=== PATIENT | male | born 1985 | race Two or more races ===

== ENCOUNTER 2024-05-20 23:18 | Inpatient (IN) | payer MEDICAID ==
[~2024-05-20] VITALS: Ht 172.7 cm; Wt 88.7 kg
[2024-05-20 23:35] VITALS: BP 127/83; PULSE 116; RESP 23; TEMP 102.4; O2SAT 100
[2024-05-21] VITALS (7 sets, daily range): BP systolic 103; BP diastolic 64; PULSE 72–117; RESP 18–22; TEMP 97.5; O2SAT 94–99
[2024-05-21 00:15] LABS: BILIRUBIN,URINE NEGATIVE (NEGATIVE); BLOOD, URINE TRACE-I (NEGATIVE); COLOR,URINE YELLOW (YELLOW); LEUKOCYTE ESTERASE ,URINE NEGATIVE (NEGATIVE); NITRITE, URINE NEGATIVE (NEGATIVE); PROTEIN,URINE 2+ (NEGATIVE); UGLUCOSE NEGATIVE (NEGATIVE); UROBILINOGEN,URINE 0.2 EU/dL (0.2 - 1)
[2024-05-21 00:17] LABS: APPEARANCE,URINE SLIGHTLY HAZY (CLEAR)
[2024-05-21 00:21] LABS: BACTERIA,URINE 2+ /HPF (None Seen); MUCUS,URINE None Seen /LPF (None Seen); RBC,URINE 0-5 /HPF (0-5); SQUAMOUS EPITHELIAL CELL,UR 0-3 (FEW) /LPF (0-3 (FEW))
[2024-05-21 00:22] LABS: ANION GAP 7.6 (8-16); CALCIUM 9.2 mg/dL (8.5-10.1); CARBON DIOXIDE 33.9 mmol/L (21-32); POTASSIUM 4.5 mmol/L (3.5-5.1)
[2024-05-21 00:27] LABS: BASOPHILS # (AUTO) 0.1 K/uL (0.00-0.22); EOSINOPHILS # (AUTO) 0.1 K/uL (0-0.4); EOSINOPHILS % (AUTO) 1.4 % (0.0-4.0); HEMATOCRIT 31.3 % (36-52); LYMPHOCYTES # (AUTO) 0.8 K/uL (2.0-11.5); LYMPHOCYTES % (AUTO) 7.4 % (20.5-51.1); MEAN CORPUSCULAR HEMOGLOBIN 27 pg (27-31); MEAN CORPUSCULAR HGB CONC 32 g/dL (33-37); MEAN CORPUSCULAR VOLUME 84.1 fL (80-94); MONOCYTES # (AUTO) 0.5 K/uL (0.8-1.0); MONOCYTES % (AUTO) 4.7 % (1.7-9.3); NEUTROPHILS # (AUTO) 8.9 K/uL (1.8-7.7); NEUTROPHILS % (AUTO) 85.5 % (42.2-75.2); PLATELET COUNT (AUTO) 370 K/uL (140-450); RED BLOOD CELL COUNT(AUTO) 3.71 MIL/uL (4.20-6.10); RED CELL DISTRIBUTION WIDTH 20.2 % (11.6-13.7); WHITE BLOOD COUNT (AUTO) 10.4 K/uL (4.8-10.8)
[2024-05-21 00:31] LABS: LACTIC ACID 1.1 mmol/L (0.4-2.0)
[2024-05-21] MEDS ORDERED: cefTRIAXone 1,000 MG VIAL ONE (00:36)
[2024-05-21 00:37] LABS: FLU A ANTIGEN negative (NEGATIVE); FLU B ANTIGEN NEGATIVE (NEGATIVE)
[2024-05-21] MEDS ORDERED: KETOROLAC 30 MG/ML VIAL ONE (00:37)
[2024-05-21] MEDS: KETOROLAC 30 MG/ML VIAL IVP ONE (00:42)
[2024-05-21] MEDS: cefTRIAXone 1,000 MG in DEXT 5% MINI-BAG PLUS 50 ML IV ONE (00:43)
[2024-05-21] MEDS ORDERED: QUET25TA46 PO (01:08)
[2024-05-21] MEDS ORDERED: [UNRECOGNIZED DRUG - CODE] TD (01:08)
[2024-05-21] MEDS ORDERED: GABA100C PO (01:08)
[2024-05-21] MEDS ORDERED: BEN10 PO (01:08)
[2024-05-21] MEDS ORDERED: LID5T TP (01:08)
[2024-05-21] MEDS ORDERED: METH-1867 PO (01:08)
[2024-05-21] MEDS ORDERED: ONDANSETRON 4 MG/2 ML VIAL IVP PRN (03:55)
[2024-05-21] MEDS ORDERED: POTASSIUM CHLORIDE 10 MEQ TABER PO PRN (03:55)
[2024-05-21] MEDS ORDERED: KCL 20 MEQ IN 100 mL PREMIX 200 ML IV PRN (03:55)
[2024-05-21] MEDS ORDERED: PIPERACILLIN/TAZOBACTAM 3.375 GM VIAL IV ONE (06:13)
[2024-05-21] MEDS: NACL 0.9% 1,000 ML IV SCH (06:19)
[2024-05-21] MEDS: PIPERACILLIN/TAZOBACTAM 3.375 GM in DEXTROSE 5% 50 ML IV SCH (06:20)
[2024-05-21] MEDS: ALBUTEROL SULFATE/IPRATROPIU 3 ML SOL IH SCH (07:18)
[2024-05-21] MEDS: DEXT 5% / NACL 0.45% 1,000 ML IV SCH (13:37)
[2024-05-21] MEDS: MORPHINE SULFATE 4 MG/ML SYR IVP PRN (20:58)
[2024-05-22] VITALS (12 sets, daily range): BP systolic 90–108; BP diastolic 47–68; PULSE 60–94; RESP 16–20; TEMP 96.6–97.6; O2SAT 72–99
[2024-05-22 07:22] LABS: BASOPHILS # (AUTO) 0.1 K/uL (0.00-0.22); EOSINOPHILS # (AUTO) 0.3 K/uL (0-0.4); EOSINOPHILS % (AUTO) 4.2 % (0.0-4.0); HEMOGLOBIN 8.2 g/dL (12.0-18.0); LYMPHOCYTES # (AUTO) 1.1 K/uL (2.0-11.5); LYMPHOCYTES % (AUTO) 18.1 % (20.5-51.1); MEAN CORPUSCULAR HEMOGLOBIN 27 pg (27-31); MEAN CORPUSCULAR HGB CONC 33 g/dL (33-37); MEAN CORPUSCULAR VOLUME 83.4 fL (80-94); MONOCYTES # (AUTO) 0.4 K/uL (0.8-1.0); NEUTROPHILS # (AUTO) 4.3 K/uL (1.8-7.7); NEUTROPHILS % (AUTO) 70.7 % (42.2-75.2); PLATELET COUNT (AUTO) 291 K/uL (140-450); RED CELL DISTRIBUTION WIDTH 19.7 % (11.6-13.7); WHITE BLOOD COUNT (AUTO) 6.1 K/uL (4.8-10.8)
[2024-05-22 07:42] LABS: ALBUMIN 1.9 g/dL (3.4-5.0); ANION GAP 7.9 (8-16); CALCIUM 8.5 mg/dL (8.5-10.1); CREATININE 0.6 mg/dL (0.6-1.3); POTASSIUM 3.9 mmol/L (3.5-5.1); TOTAL BILIRUBIN 0.2 mg/dL (0.0-1.0); TOTAL PROTEIN, SERUM 6.4 g/dL (6.4-8.2)
[2024-05-23] VITALS (10 sets, daily range): BP systolic 99–122; BP diastolic 61–80; PULSE 58–99; RESP 16–20; TEMP 96.8–98.2; O2SAT 91–100
[2024-05-23 06:02] LABS: ALBUMIN 1.9 g/dL (3.4-5.0); CALCIUM 8.5 mg/dL (8.5-10.1); CARBON DIOXIDE 34.6 mmol/L (21-32); CREATININE 0.6 mg/dL (0.6-1.3); POTASSIUM 3.6 mmol/L (3.5-5.1); TOTAL BILIRUBIN 0.3 mg/dL (0.0-1.0); TOTAL PROTEIN, SERUM 6.7 g/dL (6.4-8.2)
[2024-05-23 06:12] LABS: BASOPHILS # (AUTO) 0.1 K/uL (0.00-0.22); BASOPHILS % (AUTO) 0.6 % (0.0-2.0); EOSINOPHILS # (AUTO) 0.4 K/uL (0-0.4); EOSINOPHILS % (AUTO) 3.7 % (0.0-4.0); HEMATOCRIT 27.9 % (36-52); LYMPHOCYTES # (AUTO) 1.9 K/uL (2.0-11.5); LYMPHOCYTES % (AUTO) 17.6 % (20.5-51.1); MEAN CORPUSCULAR HEMOGLOBIN 28 pg (27-31); MEAN CORPUSCULAR HGB CONC 33 g/dL (33-37); MEAN CORPUSCULAR VOLUME 84.9 fL (80-94); MONOCYTES # (AUTO) 0.7 K/uL (0.8-1.0); MONOCYTES % (AUTO) 6.3 % (1.7-9.3); NEUTROPHILS # (AUTO) 7.7 K/uL (1.8-7.7); NEUTROPHILS % (AUTO) 71.8 % (42.2-75.2); PLATELET COUNT (AUTO) 336 K/uL (140-450); RED BLOOD CELL COUNT(AUTO) 3.28 MIL/uL (4.20-6.10); RED CELL DISTRIBUTION WIDTH 19.9 % (11.6-13.7); WHITE BLOOD COUNT (AUTO) 10.7 K/uL (4.8-10.8)
[2024-05-24] VITALS (8 sets, daily range): BP systolic 111–123; BP diastolic 67–71; PULSE 68–86; RESP 17–20; TEMP 97.8–97.9; O2SAT 88–98
[2024-05-24 06:15] LABS: BASOPHILS # (AUTO) 0.1 K/uL (0.00-0.22); BASOPHILS % (AUTO) 1.2 % (0.0-2.0); EOSINOPHILS # (AUTO) 0.2 K/uL (0-0.4); EOSINOPHILS % (AUTO) 2.6 % (0.0-4.0); HEMATOCRIT 31.5 % (36-52); HEMOGLOBIN 10.1 g/dL (12.0-18.0); LYMPHOCYTES # (AUTO) 1.1 K/uL (2.0-11.5); LYMPHOCYTES % (AUTO) 16.7 % (20.5-51.1); MEAN CORPUSCULAR HEMOGLOBIN 26 pg (27-31); MEAN CORPUSCULAR HGB CONC 32 g/dL (33-37); MEAN CORPUSCULAR VOLUME 82.2 fL (80-94); MONOCYTES # (AUTO) 0.5 K/uL (0.8-1.0); MONOCYTES % (AUTO) 6.8 % (1.7-9.3); NEUTROPHILS # (AUTO) 4.9 K/uL (1.8-7.7); NEUTROPHILS % (AUTO) 72.7 % (42.2-75.2); PLATELET COUNT (AUTO) 360 K/uL (140-450); RED BLOOD CELL COUNT(AUTO) 3.84 MIL/uL (4.20-6.10); RED CELL DISTRIBUTION WIDTH 19.5 % (11.6-13.7); WHITE BLOOD COUNT (AUTO) 6.7 K/uL (4.8-10.8)
[2024-05-24 06:19] LABS: TOTAL PROTEIN, SERUM 7.4 g/dL (6.4-8.2)
[2024-05-24 06:54] LABS: ALBUMIN 2.1 g/dL (3.4-5.0); ANION GAP 14.5 (8-16); CALCIUM 9.1 mg/dL (8.5-10.1); CARBON DIOXIDE 29.2 mmol/L (21-32); POTASSIUM 3.7 mmol/L (3.5-5.1); TOTAL BILIRUBIN 0.4 mg/dL (0.0-1.0)
[2024-05-24 10:39] LABS: CREATININE 0.5 mg/dL (0.6-1.3)
[2024-05-25] VITALS (8 sets, daily range): BP systolic 90–124; BP diastolic 54–70; PULSE 58–82; RESP 18–20; TEMP 97.5–98; O2SAT 71–100
[2024-05-25 05:31] LABS: BASOPHILS # (AUTO) 0.1 K/uL (0.00-0.22); BASOPHILS % (AUTO) 1.1 % (0.0-2.0); EOSINOPHILS # (AUTO) 0.2 K/uL (0-0.4); EOSINOPHILS % (AUTO) 2.8 % (0.0-4.0); HEMATOCRIT 27.7 % (36-52); HEMOGLOBIN 9.1 g/dL (12.0-18.0); LYMPHOCYTES # (AUTO) 1.2 K/uL (2.0-11.5); LYMPHOCYTES % (AUTO) 19.1 % (20.5-51.1); MEAN CORPUSCULAR HEMOGLOBIN 27 pg (27-31); MEAN CORPUSCULAR HGB CONC 33 g/dL (33-37); MEAN CORPUSCULAR VOLUME 81.7 fL (80-94); MONOCYTES # (AUTO) 0.4 K/uL (0.8-1.0); MONOCYTES % (AUTO) 6.2 % (1.7-9.3); NEUTROPHILS # (AUTO) 4.3 K/uL (1.8-7.7); NEUTROPHILS % (AUTO) 70.8 % (42.2-75.2); PLATELET COUNT (AUTO) 343 K/uL (140-450); RED BLOOD CELL COUNT(AUTO) 3.39 MIL/uL (4.20-6.10); RED CELL DISTRIBUTION WIDTH 19.3 % (11.6-13.7); WHITE BLOOD COUNT (AUTO) 6.1 K/uL (4.8-10.8)
[2024-05-25 05:53] LABS: ALBUMIN 1.9 g/dL (3.4-5.0); ANION GAP 5.7 (8-16); CALCIUM 8.7 mg/dL (8.5-10.1); CARBON DIOXIDE 34.3 mmol/L (21-32); CREATININE 0.6 mg/dL (0.6-1.3); TOTAL BILIRUBIN 0.5 mg/dL (0.0-1.0); TOTAL PROTEIN, SERUM 6.5 g/dL (6.4-8.2)
[2024-05-25] MEDS: POTASSIUM CHLORIDE 10 MEQ TABER PO SCH (14:00)
[2024-05-26] VITALS (9 sets, daily range): BP systolic 91–97; BP diastolic 49–58; PULSE 67–99; RESP 16–24; TEMP 97.1–98; O2SAT 71–98
[2024-05-26 05:30] LABS: BASOPHILS # (AUTO) 0.1 K/uL (0.00-0.22); EOSINOPHILS # (AUTO) 0.2 K/uL (0-0.4); EOSINOPHILS % (AUTO) 3.5 % (0.0-4.0); HEMATOCRIT 28.8 % (36-52); HEMOGLOBIN 9.3 g/dL (12.0-18.0); LYMPHOCYTES # (AUTO) 1.1 K/uL (2.0-11.5); LYMPHOCYTES % (AUTO) 15.5 % (20.5-51.1); MEAN CORPUSCULAR HEMOGLOBIN 27 pg (27-31); MEAN CORPUSCULAR HGB CONC 32 g/dL (33-37); MEAN CORPUSCULAR VOLUME 82.8 fL (80-94); MONOCYTES # (AUTO) 0.5 K/uL (0.8-1.0); MONOCYTES % (AUTO) 6.9 % (1.7-9.3); NEUTROPHILS # (AUTO) 5.2 K/uL (1.8-7.7); NEUTROPHILS % (AUTO) 73.1 % (42.2-75.2); PLATELET COUNT (AUTO) 345 K/uL (140-450); RED BLOOD CELL COUNT(AUTO) 3.47 MIL/uL (4.20-6.10); RED CELL DISTRIBUTION WIDTH 19.7 % (11.6-13.7); WHITE BLOOD COUNT (AUTO) 7.1 K/uL (4.8-10.8)
[2024-05-26 05:51] LABS: ANION GAP 8.5 (8-16); CALCIUM 8.8 mg/dL (8.5-10.1); CREATININE 0.7 mg/dL (0.6-1.3); POTASSIUM 3.5 mmol/L (3.5-5.1); TOTAL BILIRUBIN 0.4 mg/dL (0.0-1.0); TOTAL PROTEIN, SERUM 6.6 g/dL (6.4-8.2)
[2024-05-26] MEDS ORDERED: PPN PER PHARMACY MC PRN (08:40)
[2024-05-26 09:01] LABS: MAGNESIUM 1.7 mg/dL (1.8-2.4); PHOSPHORUS 4.8 mg/dL (2.5-4.9)
[2024-05-26] MEDS ORDERED: INSULIN LISPRO SLIDING SCALE 100 UNITS/ML VIAL SUBQ PRN (11:10)
[2024-05-26] MEDS: BLOOD GLUCOSE MONITORING 1 DEV DEV MC SCH (12:00)
[2024-05-26] MEDS: MAG SULF 2000 MG/WATER PREMIX 50 ML IV PRN (17:40)
[2024-05-26] MEDS: AMINO ACIDS 8.5% IV SCH (20:38)
[2024-05-26] MEDS: MULTIVITAMIN IV SCH (20:38)
[2024-05-26] MEDS: DEXTROSE IV SCH (20:38)
[2024-05-27] VITALS (10 sets, daily range): BP systolic 60–97; BP diastolic 46–59; PULSE 74–105; RESP 16–24; TEMP 97.6–99; O2SAT 93–98
[2024-05-27 05:29] LABS: ALBUMIN 2.2 g/dL (3.4-5.0); ANION GAP 7.4 (8-16); CALCIUM 8.7 mg/dL (8.5-10.1); CARBON DIOXIDE 34.4 mmol/L (21-32); CREATININE 0.6 mg/dL (0.6-1.3); MAGNESIUM 1.9 mg/dL (1.8-2.4); PHOSPHORUS 4.7 mg/dL (2.5-4.9); POTASSIUM 3.8 mmol/L (3.5-5.1); TOTAL BILIRUBIN 0.4 mg/dL (0.0-1.0); TOTAL PROTEIN, SERUM 7.4 g/dL (6.4-8.2)
[2024-05-27 05:49] LABS: CHOL/HDL RATIO 4.2 (1-4.5)
[2024-05-27] MEDS: DEXTROSE IV SCH (20:24)
[2024-05-27] MEDS: AMINO ACIDS 8.5% IV SCH (20:24)
[2024-05-27] MEDS: MULTIVITAMIN IV SCH (20:24)
[2024-05-28] VITALS (9 sets, daily range): BP systolic 97–105; BP diastolic 54–63; PULSE 65–111; RESP 16–19; TEMP 97.2–98.1; O2SAT 93–97
[2024-05-28 05:17] LABS: BASOPHILS # (AUTO) 0.1 K/uL (0.00-0.22); BASOPHILS % (AUTO) 0.8 % (0.0-2.0); EOSINOPHILS # (AUTO) 0.4 K/uL (0-0.4); EOSINOPHILS % (AUTO) 5.3 % (0.0-4.0); HEMOGLOBIN 8.7 g/dL (12.0-18.0); LYMPHOCYTES # (AUTO) 1.3 K/uL (2.0-11.5); LYMPHOCYTES % (AUTO) 16.5 % (20.5-51.1); MEAN CORPUSCULAR HEMOGLOBIN 27 pg (27-31); MEAN CORPUSCULAR HGB CONC 32 g/dL (33-37); MEAN CORPUSCULAR VOLUME 82.5 fL (80-94); MONOCYTES # (AUTO) 0.5 K/uL (0.8-1.0); MONOCYTES % (AUTO) 6.4 % (1.7-9.3); NEUTROPHILS # (AUTO) 5.6 K/uL (1.8-7.7); PLATELET COUNT (AUTO) 300 K/uL (140-450); RED BLOOD CELL COUNT(AUTO) 3.28 MIL/uL (4.20-6.10); WHITE BLOOD COUNT (AUTO) 7.9 K/uL (4.8-10.8)
[2024-05-28 05:31] LABS: ALBUMIN 1.9 g/dL (3.4-5.0); ANION GAP 8.2 (8-16); CALCIUM 8.3 mg/dL (8.5-10.1); CARBON DIOXIDE 31.8 mmol/L (21-32); CREATININE 0.5 mg/dL (0.6-1.3); MAGNESIUM 1.8 mg/dL (1.8-2.4); PHOSPHORUS 4.6 mg/dL (2.5-4.9); TOTAL BILIRUBIN 0.3 mg/dL (0.0-1.0); TOTAL PROTEIN, SERUM 6.4 g/dL (6.4-8.2)
[2024-05-29] VITALS (9 sets, daily range): BP systolic 99–120; BP diastolic 60–66; PULSE 79–98; RESP 16–20; TEMP 97.1–98.6; O2SAT 92–98
[2024-05-29 05:53] LABS: BASOPHILS # (AUTO) 0.1 K/uL (0.00-0.22); BASOPHILS % (AUTO) 0.8 % (0.0-2.0); EOSINOPHILS # (AUTO) 0.4 K/uL (0-0.4); EOSINOPHILS % (AUTO) 4.8 % (0.0-4.0); HEMATOCRIT 26.3 % (36-52); HEMOGLOBIN 8.6 g/dL (12.0-18.0); LYMPHOCYTES # (AUTO) 1.5 K/uL (2.0-11.5); LYMPHOCYTES % (AUTO) 16.5 % (20.5-51.1); MEAN CORPUSCULAR HEMOGLOBIN 27 pg (27-31); MEAN CORPUSCULAR HGB CONC 33 g/dL (33-37); MEAN CORPUSCULAR VOLUME 82.6 fL (80-94); MONOCYTES # (AUTO) 0.8 K/uL (0.8-1.0); MONOCYTES % (AUTO) 8.9 % (1.7-9.3); NEUTROPHILS # (AUTO) 6.2 K/uL (1.8-7.7); PLATELET COUNT (AUTO) 324 K/uL (140-450); RED BLOOD CELL COUNT(AUTO) 3.19 MIL/uL (4.20-6.10)
[2024-05-29 05:58] LABS: ALBUMIN 1.9 g/dL (3.4-5.0); ANION GAP 6.3 (8-16); CALCIUM 8.6 mg/dL (8.5-10.1); CARBON DIOXIDE 31.9 mmol/L (21-32); CREATININE 0.6 mg/dL (0.6-1.3); MAGNESIUM 1.8 mg/dL (1.8-2.4); PHOSPHORUS 4.7 mg/dL (2.5-4.9); POTASSIUM 4.2 mmol/L (3.5-5.1); TOTAL BILIRUBIN 0.2 mg/dL (0.0-1.0); TOTAL PROTEIN, SERUM 6.5 g/dL (6.4-8.2)
[2024-05-29] MEDS: MORPHINE SULFATE 2 MG/ML SYR IVP PRN (10:58)
== END 2024-05-29 19:10 | DRG 720 ==
LOC: MED 23:18 → MTU 05-21 04:00
PROVIDERS: ADMIT Family Medicine; ATTEND Family Medicine
PROC: 5A1935Z Respiratory Ventilation, Less than 24 Consecutive Hours (ICD-10-PCS; principal; 2024-05-21)
DX: A41.9 Sepsis, unspecified organism (principal); J96.01 Acute respiratory failure with hypoxia; J69.0 Pneumonitis due to inhalation of food and vomit; E43 Unspecified severe protein-calorie malnutrition; R53.2 Functional quadriplegia; Z20.822 Contact with and (suspected) exposure to COVID-19; I10 Essential (primary) hypertension; E66.01 Morbid (severe) obesity due to excess calories; Z79.899 Other long term (current) drug therapy; Z88.8 Allergy status to other drugs, medicaments and biological substances; Z79.51 Long term (current) use of inhaled steroids; Z68.29 Body mass index [BMI] 29.0-29.9, adult
CPT/HCPCS: 36415; 71045; 80048; 80053; 81001; 82948; 83605; 83735; 83880; 84100; 84484; 85025; 87040; 87081; 87086; 92526; 92610; 93005; 94640; 96365; 96375; 97110; 97163-GP; 97530; 99285; A9153; J0696; J1644; J1815; J1885; J2270; J2543; J3475; J7060; Q0092

== ENCOUNTER 2024-06-13 13:43 | Inpatient (IN) | payer MEDICAID ==
[~2024-06-13] VITALS: Ht 162.6 cm; Wt 85.7 kg
[~2024-06-13 13:43] MED LIST: BEN10 PO; GABA100C PO; LID5T TP; METH-1867 PO; QUET25TA46 PO; [UNRECOGNIZED DRUG - CODE] TD
[2024-06-13 13:50] VITALS: BP 113/81; PULSE 52; RESP 16; TEMP 95.7; O2SAT 95
[2024-06-13 14:22] VITALS: PULSE 58; RESP 19; O2SAT 95
[2024-06-13 15:06] LABS: BILIRUBIN,URINE NEGATIVE (NEGATIVE); BLOOD, URINE NEGATIVE (NEGATIVE); COLOR,URINE YELLOW (YELLOW); LEUKOCYTE ESTERASE ,URINE 2+ (NEGATIVE); NITRITE, URINE POSITIVE (NEGATIVE); PH,URINE 5.5 (5.0-9.0); PROTEIN,URINE NEGATIVE (NEGATIVE); UGLUCOSE NEGATIVE (NEGATIVE); UROBILINOGEN,URINE 0.2 EU/dL (0.2 - 1)
[2024-06-13 15:07] LABS: APPEARANCE,URINE SLIGHTLY CLOUDY (CLEAR)
[2024-06-13 15:08] LABS: BACTERIA,URINE 2+ /HPF (None Seen); RBC,URINE 0 /HPF (0-5); SQUAMOUS EPITHELIAL CELL,UR 0-3 (FEW) /LPF (0-3 (FEW))
[2024-06-13 15:08] LABS: BASOPHILS % (AUTO) 0.5 % (0.0-2.0); EOSINOPHILS % (AUTO) 0.2 % (0.0-4.0); HEMATOCRIT 35.3 % (36-52); HEMOGLOBIN 11.4 g/dL (12.0-18.0); LYMPHOCYTES # (AUTO) 0.4 K/uL (2.0-11.5); LYMPHOCYTES % (AUTO) 5.9 % (20.5-51.1); MEAN CORPUSCULAR HEMOGLOBIN 27 pg (27-31); MEAN CORPUSCULAR HGB CONC 32 g/dL (33-37); MEAN CORPUSCULAR VOLUME 84.9 fL (80-94); MONOCYTES # (AUTO) 0.1 K/uL (0.8-1.0); NEUTROPHILS % (AUTO) 92.4 % (42.2-75.2); PLATELET COUNT (AUTO) 462 K/uL (140-450); RED BLOOD CELL COUNT(AUTO) 4.16 MIL/uL (4.20-6.10); RED CELL DISTRIBUTION WIDTH 19.1 % (11.6-13.7); WHITE BLOOD COUNT (AUTO) 7.6 K/uL (4.8-10.8)
[2024-06-13 15:09] LABS: MUCUS,URINE None Seen /LPF (None Seen)
[2024-06-13 15:16] LABS: FLU B ANTIGEN NEGATIVE (NEGATIVE)
[2024-06-13 15:17] LABS: FLU A ANTIGEN NEGATIVE (NEGATIVE)
[2024-06-13 15:17] LABS: ANION GAP 9.7 (8-16); CALCIUM 9.4 mg/dL (8.5-10.1); CARBON DIOXIDE 36.3 mmol/L (21-32); CREATININE 0.7 mg/dL (0.6-1.3)
[2024-06-13 15:20] LABS: INR 0.99 (0.8-1.2); PARTIAL THROMBOPLASTIN TIME 26.5 secs (22-35.6); PROTHROMBIN TIME 10.4 secs (10.8-13.4)
[2024-06-13 15:27] LABS: ALANINE AMINOTRANSFERASE 21 U/L (12-78); ALBUMIN 2.1 g/dL (3.4-5.0); ALKALINE PHOSPHATASE 96 U/L (50-136); ASPARTATE AMINOTRANSFERASE 80 U/L (15-37); TOTAL BILIRUBIN 0.7 mg/dL (0.0-1.0); TOTAL PROTEIN, SERUM 8.2 g/dL (6.4-8.2)
[2024-06-13 15:31] LABS: LACTIC ACID 0.7 mmol/L (0.4-2.0)
[2024-06-13] MEDS: MORPHINE SULFATE 2 MG/ML SYR IVP ONE (15:36)
[2024-06-13] MEDS ORDERED: IPRATROPIUM 0.02% 0.5 MG/2.5 ML NEBU INH PRN (16:30)
[2024-06-13] MEDS ORDERED: ACETAMINOPHEN 325 MG TAB PO PRN (16:30)
[2024-06-13] MEDS ORDERED: ALBUTEROL 0.083% 2.5 MG/3 ML NEBU INH PRN (16:30)
[2024-06-13] MEDS ORDERED: GABA100C PO (16:48)
[2024-06-13] MEDS ORDERED: METH-1681 PO (16:48)
[2024-06-13] MEDS: DEXT 5% /NACL 0.9% 1,000 ML IV SCH (16:59)
[2024-06-13] MEDS ORDERED: CRUSHER, PILL MC ONE (17:56)
[2024-06-13] MEDS: HYDROcodone/APAP 5/325 MG 1 TAB TAB PO PRN (17:57)
[2024-06-13 19:24] VITALS: PULSE 89; RESP 22; O2SAT 98
[2024-06-13 19:30] VITALS: PULSE 70; RESP 18; O2SAT 95
[2024-06-13 20:00] VITALS: BP 110/63; PULSE 70; RESP 20; TEMP 98.3; O2SAT 95
[2024-06-13] MEDS: MORPHINE SULFATE 4 MG/ML SYR IVP PRN (20:16)
[2024-06-13] MEDS: PIPERACILLIN/TAZOBACTAM 3.375 GM in DEXTROSE 5% 50 ML IV SCH (22:09)
[2024-06-13 22:37] VITALS: O2SAT 95
[2024-06-14] VITALS (8 sets, daily range): BP systolic 95–109; BP diastolic 53–60; PULSE 68–79; RESP 20; TEMP 97–98.3; O2SAT 95–98
[2024-06-14 06:38] LABS: BASOPHILS % (AUTO) 0.2 % (0.0-2.0); EOSINOPHILS # (AUTO) 0.1 K/uL (0-0.4); EOSINOPHILS % (AUTO) 0.9 % (0.0-4.0); HEMATOCRIT 34.4 % (36-52); HEMOGLOBIN 10.9 g/dL (12.0-18.0); LYMPHOCYTES # (AUTO) 1.5 K/uL (2.0-11.5); LYMPHOCYTES % (AUTO) 19.1 % (20.5-51.1); MEAN CORPUSCULAR HEMOGLOBIN 27 pg (27-31); MEAN CORPUSCULAR HGB CONC 32 g/dL (33-37); MEAN CORPUSCULAR VOLUME 84.1 fL (80-94); MONOCYTES # (AUTO) 0.5 K/uL (0.8-1.0); MONOCYTES % (AUTO) 6.9 % (1.7-9.3); NEUTROPHILS # (AUTO) 5.6 K/uL (1.8-7.7); NEUTROPHILS % (AUTO) 72.9 % (42.2-75.2); PLATELET COUNT (AUTO) 454 K/uL (140-450); RED BLOOD CELL COUNT(AUTO) 4.09 MIL/uL (4.20-6.10); RED CELL DISTRIBUTION WIDTH 18.9 % (11.6-13.7); WHITE BLOOD COUNT (AUTO) 7.7 K/uL (4.8-10.8)
[2024-06-14 06:51] LABS: ALBUMIN 2.3 g/dL (3.4-5.0); ANION GAP 8.2 (8-16); CALCIUM 9.1 mg/dL (8.5-10.1); CARBON DIOXIDE 36.4 mmol/L (21-32); CREATININE 0.7 mg/dL (0.6-1.3); POTASSIUM 3.6 mmol/L (3.5-5.1); TOTAL BILIRUBIN 0.2 mg/dL (0.0-1.0); TOTAL PROTEIN, SERUM 7.4 g/dL (6.4-8.2)
[2024-06-14] MEDS ORDERED: ALGINATE ROPE MC PRN (13:20)
[2024-06-14] MEDS: fentaNYL citrate 0.05 MG/ML VIAL ONE (14:26)
[2024-06-14] MEDS: diphenhydrAMINE 50 MG/ML VIAL ONE (14:26)
[2024-06-14] MEDS: MIDAZOLAM 2 MG/2 ML VIAL ONE (14:26)
[2024-06-14] MEDS: MIDAZOLAM 2 MG/2 ML VIAL IVP ONE (14:42)
[2024-06-14] MEDS: MEPERIDINE 25 MG/ML SYR ONE (14:59)
[2024-06-14] MEDS: fentaNYL citrate 0.05 MG/ML VIAL IVP ONE (16:45)
[2024-06-14] MEDS: METOCLOPRAMIDE 10 MG/10 ML SYRP UDC GT SCH (17:21)
[2024-06-14] MEDS: NEOMYCIN/POLYMYXIN/BACITRACIN OIN 15 GM TUBE TP SCH (21:52)
[2024-06-15 04:00] VITALS: BP 119/50; PULSE 64; RESP 20; TEMP 97.5; O2SAT 98
[2024-06-15 07:55] VITALS: O2SAT 98
[2024-06-15 08:00] VITALS: BP 94/55; PULSE 73; RESP 20; TEMP 97.5; O2SAT 95; O2SAT 97
[2024-06-15] MEDS: POLYETHYLENE GLYCOL 17 GM/PKT GT SCH (09:17)
[2024-06-15] MEDS: ALGINATE ROPE MC SCH (12:18)
[2024-06-15] MEDS: ANTIFUNGAL CLEAR OINTMENT TP SCH (12:19)
[2024-06-15] MEDS ORDERED: ERTA1VIA2 IV (15:52)
[2024-06-15 16:00] VITALS: BP 116/72; PULSE 79; RESP 20; TEMP 97.7; O2SAT 99
[2024-06-15 19:12] VITALS: O2SAT 95
== END 2024-06-15 19:20 | DRG 133 ==
LOC: MED 13:43 → MMU 16:37 → MTU 17:32
PROVIDERS: ADMIT Hospitalist; ATTEND Hospitalist
PROC: 0DH63UZ Insertion of Feeding Device into Stomach, Percutaneous Approach (ICD-10-PCS; principal; 2024-06-14 18:15)
DX: J96.21 Acute and chronic respiratory failure with hypoxia (principal); J69.0 Pneumonitis due to inhalation of food and vomit; E44.0 Moderate protein-calorie malnutrition; R53.2 Functional quadriplegia; R65.10 Systemic inflammatory response syndrome (SIRS) of non-infectious origin without acute organ dysfunction; R13.10 Dysphagia, unspecified; Z20.822 Contact with and (suspected) exposure to COVID-19; Z88.8 Allergy status to other drugs, medicaments and biological substances; R62.7 Adult failure to thrive; Z79.899 Other long term (current) drug therapy; Z68.32 Body mass index [BMI] 32.0-32.9, adult; K58.9 Irritable bowel syndrome, unspecified; D53.9 Nutritional anemia, unspecified; Z93.0 Tracheostomy status
CPT/HCPCS: 36415; 71045; 80048; 80053; 80076; 81001; 83605; 84484; 85025; 85610; 85730; 87040; 87070; 87075; 87081; 87086; 87186; 87205; 93005; J1200; J2175; J2250; J2270; J2543; J3010; J7060; J8597